=== PATIENT | male | born 1990 | race Caucasian/White ===

== ENCOUNTER 2017-10-22 06:05 | Day surgery (SDC) | payer OTHER ==
[~2017-10-22] VITALS: Ht 177.8 cm; Wt 99.8 kg
[~2017-10-22 06:05] MED LIST: NAPROXEN375 M1 PO; NEURONTIN 300300 MG PO; PAXIL30 MG PO; PROPRANOLOL HCL20 MG PO; PROTONIX40 MG PO; SEROQUEL50 MG PO
[2017-10-22] MEDS ORDERED: ALENDRONATE SOD70 MG PO (07:43)
[2017-10-22 07:50] VITALS: BP 106/63; Ht 177.8 cm; Wt 99.8 kg
== END 2017-10-22 14:10 | disposition home or self-care (01) ==
LOC: D.OPS 06:05 → D.PAN 08:45 → D.OPS 14:10
DX: M87.852 Other osteonecrosis, left femur (principal); Z01.812 Encounter for preprocedural laboratory examination

== ENCOUNTER → 2017-12-02 13:13 | Outpatient (CLI) | payer OTHER ==
[2017-10-22 07:50] VITALS: BMI 31.6
[~2017-12-02 13:13] MED LIST changes: +ALENDRONATE SOD70 MG PO
== END | disposition home or self-care (01) ==
LOC: D.LABREF 13:13
DX: M16.11 Unilateral primary osteoarthritis, right hip (principal); Z11.8 Encounter for screening for other infectious and parasitic diseases

== ENCOUNTER → 2017-12-04 13:05 | Outpatient (CLI) | payer OTHER ==
[2017-10-22 07:50] VITALS: BMI 31.6
== END | disposition home or self-care (01) ==
LOC: D.LABREF 13:05
DX: M16.11 Unilateral primary osteoarthritis, right hip (principal); Z11.8 Encounter for screening for other infectious and parasitic diseases

== ENCOUNTER 2017-12-14 07:25 | Inpatient (IN) | payer OTHER ==
[~2017-12-14] VITALS: Ht 175.3 cm; Wt 90.9 kg
--- NOTE | ~2017-12-14 | MORECARE ---
CASE MANAGEMENT DISCHARGE SUMMARY PATIENT: XUAN TROTTER UNIT: [id number] ADM DATE: 12/14/17 AGE: 27 : 88 SEX: M ROOM/BED: D.2209 AUTHOR: JOSEPHINE BLAIR PHYSICIAN: REFERRING PHYSICIAN: DENNIS GRAHAM MD DATE OF SERVICE: 12/22/17 Discharge Plan Patient Name: XUNA TROTTER Facility: [facility]:[place] : 1990 Planned Disposition: Home with Home Health Anticipated Discharge Date: Discharge Date: 12/16/2017 Expected LOS: 0 Initial Reviewer: [email or web address] Initial Review Date: 12/14/2017 Generated: 12/22/17 10:23 am Comments DCP- Discharge Planning Updated by [email or web address]: Nancy Tripathi on 12/16/17 10:[address] Patient Name: XUAN TROTTER Admission Status: ER Accout number: [id number] Admission Date: 12-14-2017 : 1990 Admission Diagnosis: Attending: DENNIS GRAHAM Current LOS: 2 Anticipated DC Date: Planned Disposition: Home with Home Health Primary Insurance: [employer] MANAGED MEDICAID Discharge Planning Comments: CM met with patient to assess discharge planning needs. Patient will be discharging home to his fathers house where he is currently living and stated he feels safe there. He has a walker, wheelchair, crutches, cane, bedside commode, and shower chair at home. He would like to use [facility] [phone] for his home health. I called and spoke with Mindi and faxed order and clinicals over to her. She did not think there would be a problem to accept the patient . Patient's home address is [address] [place] [address] patient cell # is [phone]. Patient stated that he has walked 50 feet and has practiced stairs and feels safe to go home. His father will be the one to drive him home. CM will continue to follow and assist with DC planning as needed Occupational Health Specialist: Nancy Tripathi DCPIA - Discharge Planning Initial Assessment Updated by [email or web address]: Nancy Tripathi on 12/16/17 11:39 am * Is the patient Alert and Oriented? Yes * How many steps to enter\exit or inside your home? * PCP [facility] * [facility]acy [facility] * Preadmission Environment Home with Family * ADLs Independent * Equipment Bedside Commode Cane Crutch Rolling Walker Shower Chair Walker Wheelchair * List name and contact numbers for known caregivers / representatives who currently or will assist patient after discharge: RACHEL TROTTER (FATHER) * Verbal permission to speak to the caregivers and representatives has been obtained from the patient. N/A * Community resources currently utilized None * Additional services required to return to the preadmission environment? Yes * Can the patient safely return to the preadmission environment? Yes * Has this patient been hospitalized within the prior 30 days at any hospital? No Last DP export: 12/18/17 2:45 p Patient Name: XUAN TROTTER Page 47370 at 0923 All edits/amendments must be made on the electronic document DICTATION DATE: 12/22/17921 LONG DISTANCE OPERATOR: HOLLY 12/22/17921 RPT#: [id number] DC DATE:12/16/17 STATUS: DIS IN [facility] [address] [place] [address] END OF REPORT
--- NOTE | ~2017-12-14 | MORECARE ---
CASE MANAGEMENT DISCHARGE SUMMARY PATIENT: XUAN TROTTER UNIT: [id number] ADM DATE: 12/14/17 AGE: 27 : [birth year] SEX: M ROOM/BED: D.2209 AUTHOR: JOSEPHINE BLAIR PHYSICIAN: REFERRING PHYSICIAN: DENNIS GRAHAM MD DATE OF SERVICE: 12/18/17 Discharge Plan Patient Name: XUAN TROTTER Facility: [facility]:[place] : 1990 Planned Disposition: Home with Home Health Anticipated Discharge Date: Discharge Date: 12/16/2017 Expected LOS: Initial Reviewer: [email or web address] Initial Review Date: 12/14/2017 Generated: 12/18/17 4:45 pm Comments DCP- Discharge Planning Updated by [email or web address]: Nancy Tripathi on 12/16/17 10:[address] Patient Name: XUAN TROTTER Admission Status: ER Accout number: [id number] Admission Date: 12-14-2017 : 1990 Admission Diagnosis: Attending: DENNIS GRAHAM Current LOS: 2 Anticipated DC Date: Planned Disposition: Home with Home Health Primary Insurance: [employer] MANAGED MEDICAID Discharge Planning Comments: CM met with patient to assess discharge planning needs. Patient will be discharging home to his fathers house where he is currently living and stated he feels safe there. He has a walker, wheelchair, crutches, cane, bedside commode, and shower chair at home. He would like to use [facility] [phone] for his home health. I called and spoke with Mindi and faxed order and clinicals over to her. She did not think there would be a problem to accept the patient . Patient's home address is [address] [place] [address] patient cell # is [phone]. Patient stated that he has walked 50 feet and has practiced stairs and feels safe to go home. His father will be the one to drive him home. CM will continue to follow and assist with DC planning as needed Captain'S Assistant: Nancy Tripathi DCPIA - Discharge Planning Initial Assessment Updated by [email or web address]: Nancy Tripathi on 12/16/17 11:39 am * Is the patient Alert and Oriented? Yes * How many steps to enter\exit or inside your home? * PCP [facility] * [facility] * Preadmission Environment Home with Family * ADLs Independent * Equipment Bedside Commode Cane Crutch Rolling Walker Shower Chair Walker Wheelchair * List name and contact numbers for known caregivers / representatives who currently or will assist patient after discharge: RACHEL TROTTER (FATHER) * Verbal permission to speak to the caregivers and representatives has been obtained from the patient. N/A * Community resources currently utilized None * Additional services required to return to the preadmission environment? Yes * Can the patient safely return to the preadmission environment? Yes * Has this patient been hospitalized within the prior 30 days at any hospital? No External Providers [facility] Next Contact Date: Service Request Date: Service Type: Resolution: Reviewer: Comments: Last DP export: 12/16/17 10:51 a Patient Name: XUAN TROTTER Page 64686 at 1545 All edits/amendments must be made on the electronic document DICTATION DATE: 12/18/17 1544 MMD UNIT TEACHER: HOLLY 12/18/17 1544 RPT#: [id number] DC DATE:12/16/17 STATUS: DIS IN [facility] [address] [place] [address] END OF REPORT
--- NOTE | ~2017-12-14 | MORECARE ---
CASE MANAGEMENT DISCHARGE SUMMARY PATIENT: XUAN TROTTER UNIT: [id number] ADM DATE: 12/14/17 AGE: 27 : [birth year] SEX: M ROOM/BED: D.2209 AUTHOR: JOSEPHINE BLAIR PHYSICIAN: REFERRING PHYSICIAN: DENNIS GRAHAM MD DATE OF SERVICE: 12/16/17 Discharge Plan Patient Name: XUAN TROTTER Facility: [facility]:[place] : 1990 Planned Disposition: Home with Home Health Anticipated Discharge Date: Discharge Date: Expected LOS: Initial Reviewer: [email or web address] Initial Review Date: 12/14/2017 Generated: 12/16/17 12:51 pm Comments DCP- Discharge Planning Updated by [email or web address]: Nancy Tripathi on 12/16/17 10:[address] Patient Name: XUAN TROTTER Admission Status: ER Accout number: [id number] Admission Date: 12-14-2017 : 1990 Admission Diagnosis: Attending: DENNIS GRAHAM Current LOS: 2 Anticipated DC Date: Planned Disposition: Home with Home Health Primary Insurance: [employer] MANAGED MEDICAID Discharge Planning Comments: CM met with patient to assess discharge planning needs. Patient will be discharging home to his fathers house where he is currently living and stated he feels safe there. He has a walker, wheelchair, crutches, cane, bedside commode, and shower chair at home. He would [facility] to [facility] [phone] for his home health. I called and spoke with Mindi and faxed order and clinicals over to her. She did not think there would be a problem to accept the patient . Patient's home address is [address] [place] [address] patient cell # is [phone]. Patient stated that he has walked 50 feet and has practiced stairs and feels safe to go home. His father will be the one to drive him home. CM will continue to follow and assist with DC planning as needed Head Loader: Nancy Tripathi DCPIA - Discharge Planning Initial Assessment Updated by [email or web address]: Nancy Tripathi on 12/16/17 11:39 am * Is the patient Alert and Oriented? Yes * How many steps to enter\exit or inside your home? * PCP [facility] * [facility] * Preadmission Environment Home with Family * ADLs Independent * Equipment Bedside Commode Cane Crutch Rolling Walker Shower Chair Walker Wheelchair * List name and contact numbers for known caregivers / representatives who currently or will assist patient after discharge: RACHEL TROTTER (FATHER) * Verbal permission to speak to the caregivers and representatives has been obtained from the patient. N/A * Community resources currently utilized None * Additional services required to return to the preadmission environment? Yes * Can the patient safely return to the preadmission environment? Yes * Has this patient been hospitalized within the prior 30 days at any hospital? No Last DP export: 12/16/17 10:43 a Patient Name: XUAN TROTTER Page 72863 at 1151 All edits/amendments must be made on the electronic document DICTATION DATE: 12/16/17 1151 REGISTRY NURSE: HOLLY 12/16/17 1151 RPT#: [id number] DC DATE: STATUS: ADM IN [facility] [address] [place] [address] END OF REPORT
--- NOTE | ~2017-12-14 | MORECARE ---
CASE MANAGEMENT DISCHARGE SUMMARY PATIENT: XUAN TROTTER UNIT: [id number] ADM DATE: 12/14/17 AGE: 27 : [birth year] SEX: M ROOM/BED: D.2209 AUTHOR: JOSEPHINE BLAIR PHYSICIAN: REFERRING PHYSICIAN: DENNIS GRAHAM MD DATE OF SERVICE: 12/16/17 Discharge Plan Patient Name: XUAN TROTTER [facility] : 1990 Planned Disposition: Home with Home Health Anticipated Discharge Date: Discharge Date: Expected LOS: Initial Reviewer: [email or web address] Initial Review Date: 12/14/2017 Generated: 12/16/17 12:43 pm DCPIA - Discharge Planning Initial Assessment Updated by [email or web address]: Nancy Tripathi on 12/16/17 11:39 am * Is the patient Alert and Oriented? Yes * How many steps to enter\exit or inside your home? * PCP [facility] * Pharmacy [facility] * Preadmission Environment Home with Family * ADLs Independent * Equipment Bedside Commode Cane Crutch Rolling Walker Shower Chair Walker Wheelchair * List name and contact numbers for known caregivers / representatives who currently or will assist patient after discharge: RACHEL TROTTER (FATHER) * Verbal permission to speak to the caregivers and representatives has been obtained from the patient. N/A * Community resources currently utilized None * Additional services required to return to the preadmission environment? Yes * Can the patient safely return to the preadmission environment? Yes * Has this patient been hospitalized within the prior 30 days at any hospital? No Patient Name: XUAN TROTTER Page 06147 at 1143 All edits/amendments must be made on the electronic document DICTATION DATE: 12/16/17 1142 LOAD TALLIER: HOLLY 12/16/17 1142 RPT#: [id number] DC DATE: STATUS: ADM IN [facility] [address] [place] [address] END OF REPORT
[2017-12-14 08:22] LABS: BASOPHILS 0 % (0-2); EOSINOPHILS 0 % (0-7); HEMATOCRIT 39.9 % (42.0-54.0); HEMOGLOBIN 13.3 g/dL (13.5-17.5); IMMATURE GRANULOCYTES 0.3 % (0-5); LYMPHOCYTES 11.8 % (15-50); MCH 26.3 pg (26.0-34.0); MCHC 33.3 g/dL (31.0-37.0); MEAN PLATELET VOLUME 8.7 fL (7.4-10.4); MONOCYTES 3.2 % (2-11); NEUTROPHILS 84.7 % (40-80); PLATELET COUNT 236 10x3/uL (130-400); RBC 5.05 10x6/uL (4.20-6.10); WBC 9.5 10x3/uL (4.8-10.8)
[2017-12-14 08:36] LABS: APTT 25.6 SECONDS (22.8-39.4); INR 1.01 (0.85-1.17); PROTIME 12.9 SECONDS (11.6-15.0)
[2017-12-14 08:41] LABS: ALBUMIN 3.8 g/dL (3.4-5.0); ALKALINE PHOSPHATASE 115 U/L (46-116); ALT (SGPT) 20 U/L (10-68); BILIRUBIN - TOTAL 0.31 mg/dL (0.2-1.3); CALC OSMOLALITY 266 mosm/kg (275-300); CALCIUM 8.9 mg/dL (8.5-10.1); CARBON DIOXIDE 22.9 mmol/L (21.0-32.0); CHLORIDE - SERUM 97 mmol/L (98-107); CREATININE - SERUM 0.6 mg/dL (0.6-1.3); GLUCOSE 97 mg/dL (74-106); POTASSIUM - SERUM 4.3 mmol/L (3.5-5.1); PROTEIN - SERUM 8.4 g/dL (6.4-8.2); SODIUM 135 mmol/L (136-145); UREA NITROGEN 4 mg/dL (7-18); eGFR NON AFRICAN AMERICAN > 90 mL/min (90-120)
[2017-12-14 09:50] VITALS: BP 148/80; Ht 175.3 cm; Wt 90.9 kg
[2017-12-14 13:24] VITALS: BP 167/89
[2017-12-14 14:45] LABS: BASOPHILS 0.1 % (0-2); EOSINOPHILS 0 % (0-7); HEMATOCRIT 37.2 % (42.0-54.0); HEMOGLOBIN 12.2 g/dL (13.5-17.5); IMMATURE GRANULOCYTES 0.3 % (0-5); LYMPHOCYTES 6.7 % (15-50); MCHC 32.8 g/dL (31.0-37.0); MCV 79.3 fL (80.0-100.0); MEAN PLATELET VOLUME 8.7 fL (7.4-10.4); MONOCYTES 2.5 % (2-11); NEUTROPHILS 90.4 % (40-80); PLATELET COUNT 233 10x3/uL (130-400); RBC 4.69 10x6/uL (4.20-6.10); WBC 10.2 10x3/uL (4.8-10.8)
[2017-12-14 14:55] LABS: CALC OSMOLALITY 272 mosm/kg (275-300); CALCIUM 8.3 mg/dL (8.5-10.1); CARBON DIOXIDE 24.5 mmol/L (21.0-32.0); CHLORIDE - SERUM 101 mmol/L (98-107); CREATININE - SERUM 0.6 mg/dL (0.6-1.3); GLUCOSE 102 mg/dL (74-106); POTASSIUM - SERUM 4.5 mmol/L (3.5-5.1); SODIUM 138 mmol/L (136-145); UREA NITROGEN 4 mg/dL (7-18); eGFR NON AFRICAN AMERICAN > 90 mL/min (90-120)
[2017-12-14 16:07] VITALS: BP 163/83
[2017-12-14 20:00] VITALS: BP 158/75
[2017-12-15 01:00] VITALS: BP 134/82
[2017-12-15 06:26] LABS: BASOPHILS 0.1 % (0-2); EOSINOPHILS 0 % (0-7); HEMATOCRIT 34.5 % (42.0-54.0); HEMOGLOBIN 10.8 g/dL (13.5-17.5); IMMATURE GRANULOCYTES 0.2 % (0-5); LYMPHOCYTES 10.2 % (15-50); MCHC 31.3 g/dL (31.0-37.0); MCV 79.9 fL (80.0-100.0); MEAN PLATELET VOLUME 8.8 fL (7.4-10.4); MONOCYTES 11.6 % (2-11); NEUTROPHILS 77.9 % (40-80); PLATELET COUNT 214 10x3/uL (130-400); RBC 4.32 10x6/uL (4.20-6.10); RDW 16.1 % (11.5-14.5); WBC 9.9 10x3/uL (4.8-10.8)
[2017-12-15 06:50] LABS: ALBUMIN 3.2 g/dL (3.4-5.0); ALKALINE PHOSPHATASE 92 U/L (46-116); ALT (SGPT) 18 U/L (10-68); BILIRUBIN - TOTAL 0.73 mg/dL (0.2-1.3); CALC OSMOLALITY 264 mosm/kg (275-300); CALCIUM 8.7 mg/dL (8.5-10.1); CARBON DIOXIDE 27.2 mmol/L (21.0-32.0); CHLORIDE - SERUM 98 mmol/L (98-107); CREATININE - SERUM 0.7 mg/dL (0.6-1.3); GLUCOSE 101 mg/dL (74-106); PROTEIN - SERUM 7.2 g/dL (6.4-8.2); SODIUM 134 mmol/L (136-145); UREA NITROGEN 5 mg/dL (7-18); eGFR NON AFRICAN AMERICAN > 90 mL/min (90-120)
[2017-12-15 06:51] LABS: POTASSIUM - SERUM 3.7 mmol/L (3.5-5.1)
[2017-12-15 08:12] VITALS: BP 139/70
[2017-12-15 13:04] VITALS: BP 144/78
[2017-12-15 16:33] VITALS: BP 153/82
[2017-12-15 20:00] VITALS: BP 140/84
[2017-12-16] VITALS: BP 151/69
[2017-12-16 04:00] VITALS: BP 143/82
[2017-12-16 08:30] VITALS: BP 144/69
[2018-01-05] MEDS ORDERED: BUPRENORPHIN-N1 EACH SL (13:10)
== END 2017-12-16 13:03 | disposition home health service (06) | DRG 470 ==
LOC: D.ER 07:25 → D.MS 08:07 → D.SDCHOLD 12-15 09:39 → D.MS 12-15 09:41
PROVIDERS: Family Medicine; Orthopaedic Surgery
PROC: 0SRB0JA Replacement of Left Hip Joint with Synthetic Substitute, Uncemented, Open Approach (ICD-10-PCS; principal; 2017-12-14 09:13)
DX: M84.652A Pathological fracture in other disease, left femur, initial encounter for fracture (principal); M87.852 Other osteonecrosis, left femur; K21.9 Gastro-esophageal reflux disease without esophagitis; F17.200 Nicotine dependence, unspecified, uncomplicated; H91.92 Unspecified hearing loss, left ear

== ENCOUNTER 2018-01-07 05:00 | Inpatient (IN) | payer OTHER ==
[2018-01-05 14:22] LABS: CALC OSMOLALITY 278 mosm/kg (275-300); CALCIUM 8.7 mg/dL (8.5-10.1); CARBON DIOXIDE 29.2 mmol/L (21.0-32.0); CHLORIDE - SERUM 101 mmol/L (98-107); CREATININE - SERUM 0.8 mg/dL (0.6-1.3); GLUCOSE 115 mg/dL (74-106); POTASSIUM - SERUM 4.1 mmol/L (3.5-5.1); SODIUM 140 mmol/L (136-145); UREA NITROGEN 10 mg/dL (7-18); eGFR NON AFRICAN AMERICAN > 90 mL/min (90-120)
[2018-01-05 14:26] LABS: APTT 27.5 SECONDS (22.8-39.4); INR 1.01 (0.85-1.17); PROTIME 12.8 SECONDS (11.6-15.0)
[2018-01-05 15:17] LABS: BASOPHILS 0.4 % (0-2); HEMATOCRIT 32.3 % (42.0-54.0); HEMOGLOBIN 9.9 g/dL (13.5-17.5); IMMATURE GRANULOCYTES 0.1 % (0-5); LYMPHOCYTES 35.1 % (15-50); MCH 24.8 pg (26.0-34.0); MCHC 30.7 g/dL (31.0-37.0); MEAN PLATELET VOLUME 8.9 fL (7.4-10.4); MONOCYTES 9.6 % (2-11); NEUTROPHILS 52.8 % (40-80); RBC 3.99 10x6/uL (4.20-6.10); RDW 15.1 % (11.5-14.5); WBC 6.8 10x3/uL (4.8-10.8)
[2018-01-05 15:22] LABS: PLATELET COUNT 400 10x3/uL (130-400)
[2018-01-05 16:08] LABS: APPEARANCE HAZY (CLEAR); COLOR DK YELLOW (YELLOW); GLUCOSE NEGATIVE (NEGATIVE); KETONE NEGATIVE (NEGATIVE); NITRITE NEGATIVE (NEGATIVE); PROTEIN TRACE mg/dL (NEGATIVE)
[2018-01-05 16:09] LABS: BILIRUBIN 2+ (NEGATIVE)
[2018-01-05 16:11] LABS: AMORPHOUS SEDIMENT <1+ /lpf (NONE SEEN); BACTERIA MANY /hpf (NONE SEEN); RED CELLS - URINE OCC /hpf (0-5); WHITE CELLS - URINE RARE /hpf (0-5)
[~2018-01-07] VITALS: Ht 177.8 cm; Wt 90.9 kg
--- NOTE | ~2018-01-07 | MORECARE ---
CASE MANAGEMENT DISCHARGE SUMMARY PATIENT: XUAN TROTTER UNIT: [id number] ADM DATE: 01/07/18 AGE: 27 : [birth year] SEX: M ROOM/BED: D.2230 AUTHOR: JOSEPHINE BLAIR PHYSICIAN: REFERRING PHYSICIAN: DENNIS GRAHAM MD DATE OF SERVICE: 01/09/18 Discharge Plan Patient Name: XUAN TROTTER [facility] [facility] 1990 Planned Disposition: Home with Home Health Anticipated Discharge Date: 01/09/18 Discharge Date: Expected LOS: 2 Initial Reviewer: [email or web address] Initial Review Date: 01/09/2018 Generated: 01/09/18 1:31 pm DCPIA - Discharge Planning Initial Assessment Updated by [email or web address]: Svetlana Bardales on 01/09/18 12:27 pm * Is the patient Alert and Oriented? Yes * How many steps to enter\exit or inside your home? 2/0 * PCP Dr[facility] Caleb Toro in [facility] * Pharmacy [facility] in [place] * Preadmission Environment Home with Family * ADLs Partial Dependent * Partial ADLs (Assistance needed) Ambulation * Equipment Cane Other Walker Wheelchair * Other Equipment Commode Property Custodian (3 way) * List name and contact numbers for known caregivers / representatives who currently or will assist patient after discharge: [place] - [facility] - [phone] * Verbal permission to speak to the caregivers and representatives has been obtained from the patient. Yes * Community resources currently utilized Home Health * Please name any agencies selected above. [facility] * Additional services required to return to the preadmission environment? No * Can the patient safely return to the preadmission environment? Yes * Has this patient been hospitalized within the prior 30 days at any hospital? Yes Patient Name: XUAN TROTTER Page 03792 at 1231 All edits/amendments must be made on the electronic document DICTATION DATE: 01/09/18 1231 COMBINE MECHANIC: HOLLY 01/09/18 1231 RPT#: [id number] DC DATE: STATUS: ADM IN [facility] [address] [place] [address] END OF REPORT
--- NOTE | ~2018-01-07 | MORECARE ---
CASE MANAGEMENT DISCHARGE SUMMARY PATIENT: XUAN TROTTER UNIT: [id number] ADM DATE: 01/07/18 AGE: 27 : [birth year] SEX: M ROOM/BED: D.2230 AUTHOR: JOSEPHINE BLAIR PHYSICIAN: REFERRING PHYSICIAN: DENNIS GRAHAM MD DATE OF SERVICE: 01/09/18 Discharge Plan Patient Name: XUAN TROTTER Facility: [facility]:[place] : 1990 Planned Disposition: Home with Home Health Anticipated Discharge Date: 01/09/18 Discharge Date: Expected LOS: 2 Initial Reviewer: [email or web address] Initial Review Date: 01/09/2018 Generated: 01/09/18 1:40 pm Comments DCP- Discharge Planning Updated by [email or web address]: Svetlana Bardales on 01/09/18 11:[address] Patient Name: XUAN TROTTER Admission Status: Elective Accout number: [id number] Admission Date: 01-07-2018 : 1990 Admission Diagnosis: Attending: DENNIS GRAHAM Current LOS: 2 Anticipated DC Date: 01-09-2018 Planned Disposition: Home with Home Health Primary Insurance: [employer] MANAGED MEDICAID Discharge Planning Comments: CM met with patient and his father to discuss discharge planning/needs. States he uses a walker for ambulation, otherwise is independent with all ADL's. States he had his left hip operated on 4 weeks ago and has done well. States [facility] has been doing his PT and nursing. He denies need for additional DME or rehab services. His plan is to return home with resumption of [facility] with [facility]. Spoke with Cassy at [facility] #[phone] and notified of discharge today. Clinical faxed to [phone]. Home today with resumption of HHS. CM will continue to follow and assist with discharge planning/needs. Airplane Electrician: Svetlana Bardales DCPIA - Discharge Planning Initial Assessment Updated by [email or web address]: Svetlana Bardales on 01/09/18 12:27 pm * Is the patient Alert and Oriented? Yes * How many steps to enter\exit or inside your home? 2/0 * PCP Dr[facility] Caleb Toro in [facility] * Pharmacy [facility] in [place] * Preadmission Environment Home with Family * ADLs Partial Dependent * Partial ADLs (Assistance needed) Ambulation * Equipment Cane Other Walker Wheelchair * Other Equipment Commode Hide Inspector And Sorter (3 way) * List name and contact numbers for known caregivers / representatives who currently or will assist patient after discharge: [place] casanova - [phone] * Verbal permission to speak to the caregivers and representatives has been obtained from the patient. Yes * Community resources currently utilized Home Health * Please name any agencies selected above. [facility] * Additional services required to return to the preadmission environment? No * Can the patient safely return to the preadmission environment? Yes * Has this patient been hospitalized within the prior 30 days at any hospital? Yes Last DP export: 01/09/18 11:31 Patient Name: XUAN TROTTER Page 22520 at 1240 All edits/amendments must be made on the electronic document DICTATION DATE: 01/09/18 1240 CLINIC CLERK: HOLLY 01/09/18 1240 RPT#: [id number] DC DATE: STATUS: ADM IN [facility] [address] [place] [address] END OF REPORT
--- NOTE | ~2018-01-07 | MORECARE ---
CASE MANAGEMENT DISCHARGE SUMMARY PATIENT: XUAN TROTTER UNIT: [id number] ADM DATE: 01/07/18 AGE: 27 : [birth year] SEX: M ROOM/BED: D.2230 AUTHOR: JOSEPHINE BLAIR PHYSICIAN: REFERRING PHYSICIAN: DENNIS GRHAAM MD DATE OF SERVICE: 01/09/18 Discharge Plan Patient Name: XUAN TROTTER Facility: [facility]:[place] : 1990 Planned Disposition: Home with Home Health Anticipated Discharge Date: 01/09/18 Discharge Date: Expected LOS: 2 Initial Reviewer: [email or web address] Initial Review Date: 01/09/2018 Generated: 01/09/18 1:51 pm Comments DCP- Discharge Planning Updated by [email or web address]: Svetlana Bardales on 01/09/18 11:[address] Patient Name: XUAN TROTTER Admission Status: Elective Accout number: [id number] Admission Date: 01-07-2018 : 1990 Admission Diagnosis: Attending: DENNIS GRAHAM Current LOS: 2 Anticipated DC Date: 01-09-2018 Planned Disposition: Home with Home Health Primary Insurance: [employer] MANAGED MEDICAID Discharge Planning Comments: CM met with patient and his father to discuss discharge planning/needs. States he uses a walker for ambulation, otherwise is independent with all ADL's. States he had his left hip operated on 4 weeks ago and has done well. States [facility] care has been doing his PT and nursing. He denies need for additional DME or rehab services. His plan is to return home with resumption of [facility] with [facility]. Spoke with Cassy at [facility] #[phone] and notified of discharge today. Clinical faxed to [phone]. Home today with resumption of HHS. CM will continue to follow and assist with discharge planning/needs. Weed Controller: Svetlana Bardales DCPIA - Discharge Planning Initial Assessment Updated by [email or web address]: Svetlana Bardales on 01/09/18 12:27 pm * Is the patient Alert and Oriented? Yes * How many steps to enter\exit or inside your home? 2/0 * PCP Dr[facility] Caleb Toro in [facility] * Pharmacy [facility] in [place] * Preadmission Environment Home with Family * ADLs Partial Dependent * Partial ADLs (Assistance needed) Ambulation * Equipment Cane Other Walker Wheelchair * Other Equipment Commode Mobile Lab Technician (3 way) * List name and contact numbers for known caregivers / representatives who currently or will assist patient after discharge: [place] casanova - [phone] * Verbal permission to speak to the caregivers and representatives has been obtained from the patient. Yes * Community resources currently utilized Home Health * Please name any agencies selected above. [facility] * Additional services required to return to the preadmission environment? No * Can the patient safely return to the preadmission environment? Yes * Has this patient been hospitalized within the prior 30 days at any hospital? Yes External Providers External Provider: [facility] Next Contact Date: Service Request Date: Service Type: Resolution: Reviewer: Comments: Last DP export: 01/09/18 11:40 Patient Name: XUAN TROTTER Page 80857 at 1251 All edits/amendments must be made on the electronic document DICTATION DATE: 01/09/18 1250 JUICE TESTER: HOLLY 01/09/18 1250 RPT#: [id number] DC DATE: STATUS: ADM IN [facility] [address] [place] [address] END OF REPORT
--- NOTE | ~2018-01-07 | MORECARE ---
CASE MANAGEMENT DISCHARGE SUMMARY PATIENT: XUAN TROTTER UNIT: [id number] ADM DATE: 01/07/18 AGE: 27 : [birth year] SEX: M ROOM/BED: D.2230 AUTHOR: JOSEPHINE BLAIR PHYSICIAN: REFERRING PHYSICIAN: DENNIS GRAHAM MD DATE OF SERVICE: 01/09/18 Discharge Plan Patient Name: XUAN TROTTER Facility: [facility]:[place] : 1990 Planned Disposition: Home with Home Health Anticipated Discharge Date: 01/09/18 Discharge Date: 01/09/2018 Expected LOS: 2 Initial Reviewer: [email or web address] Initial Review Date: 01/09/2018 Generated: 01/09/18 4:59 pm Comments DCP- Discharge Planning Updated by [email or web address]: Svetlana Bardales on 01/09/18 11:[address] Patient Name: XUAN TROTTER Admission Status: Elective Accout number: [id number] Admission Date: 01-07-2018 : 1990 Admission Diagnosis: Attending: DENNIS GRAHAM Current LOS: 2 Anticipated DC Date: 01-09-2018 Planned Disposition: Home with Home Health Primary Insurance: [employer] MEDICAID Discharge Planning Comments: CM met with patient and his father to discuss discharge planning/needs. States he uses a walker for ambulation, otherwise is independent with all ADL's. States he had his left hip operated on 4 weeks ago and has done well. States [facility] care has been doing his PT and nursing. He denies need for additional DME or rehab services. His plan is to return home with resumption of [facility] with [facility]. Spoke with Cassy at [facility] #[phone] and notified of discharge today. Clinical faxed to [phone]. Home today with resumption of HHS. CM will continue to follow and assist with discharge planning/needs. Medical Customer Service Representative: Svetlana Bardales DCPIA - Discharge Planning Initial Assessment Updated by [email or web address]: Svetlana Bardales on 01/09/18 12:27 pm * Is the patient Alert and Oriented? Yes * How many steps to enter\exit or inside your home? 2/0 * PCP Dr[facility] Caleb Toro in [facility] * Pharmacy [facility] in [place] * Preadmission Environment Home with Family * ADLs Partial Dependent * Partial ADLs (Assistance needed) Ambulation * Equipment Cane Other Walker Wheelchair * Other Equipment Commode Journalism Teacher (3 way) * List name and contact numbers for known caregivers / representatives who currently or will assist patient after discharge: [place] - edilberto - [phone] * Verbal permission to speak to the caregivers and representatives has been obtained from the patient. Yes * Community resources currently utilized Home Health * Please name any agencies selected above. [facility] * Additional services required to return to the preadmission environment? No * Can the patient safely return to the preadmission environment? Yes * Has this patient been hospitalized within the prior 30 days at any hospital? Yes Last DP export: 01/09/18 11:51 Patient Name: XUAN TROTTER Page 91234 at 1559 All edits/amendments must be made on the electronic document DICTATION DATE: 01/09/181558 TONGUE CARRIER: HOLLY 01/09/18 1559 RPT#: [id number] DC DATE:01/09/18 STATUS: DIS IN [facility] [address] [place] [address] END OF REPORT
[~2018-01-07 05:00] MED LIST changes: +BUPRENORPHIN-N1 EACH SL
[2018-01-07 06:32] VITALS: BP 109/54; BMI 28.7
[2018-01-07 11:45] LABS: APPEARANCE CLEAR (CLEAR); BILIRUBIN NEGATIVE (NEGATIVE); COLOR YELLOW (YELLOW); GLUCOSE NEGATIVE (NEGATIVE); KETONE NEGATIVE (NEGATIVE); NITRITE NEGATIVE (NEGATIVE); PROTEIN NEGATIVE (NEGATIVE); SPECIFIC GRAVITY 1.025 (1.005-1.020); UROBILINOGEN NORMAL (NORMAL)
[2018-01-07 12:07] LABS: BACTERIA FEW /hpf (NONE SEEN); EPITHELIAL CELLS 0-5 /hpf (0-5); MUCUS <1+ /lpf (NONE SEEN); WHITE CELLS - URINE RARE /hpf (0-5)
[2018-01-07 22:38] VITALS: BP 119/47
[2018-01-08 01:05] VITALS: BP 125/51
[2018-01-08 06:35] VITALS: BP 100/46
[2018-01-08 08:15] VITALS: BP 126/67
[2018-01-08 11:14] VITALS: BP 126/78
[2018-01-08 11:36] LABS: BASOPHILS 0.2 % (0-2); HEMATOCRIT 29.1 % (42.0-54.0); HEMOGLOBIN 8.9 g/dL (13.5-17.5); IMMATURE GRANULOCYTES 0.5 % (0-5); LYMPHOCYTES 9.6 % (15-50); MCH 24.3 pg (26.0-34.0); MCHC 30.6 g/dL (31.0-37.0); MCV 79.3 fL (80.0-100.0); MEAN PLATELET VOLUME 8.6 fL (7.4-10.4); MONOCYTES 1.4 % (2-11); NEUTROPHILS 87.3 % (40-80); RBC 3.67 10x6/uL (4.20-6.10); RDW 15.2 % (11.5-14.5); WBC 9.1 10x3/uL (4.8-10.8)
[2018-01-08 11:46] LABS: PLATELET COUNT 284 10x3/uL (130-400)
[2018-01-08 11:47] LABS: CALC OSMOLALITY 272 mosm/kg (275-300); CARBON DIOXIDE 25.8 mmol/L (21.0-32.0); CHLORIDE - SERUM 106 mmol/L (98-107); CREATININE - SERUM 0.8 mg/dL (0.6-1.3); GLUCOSE 103 mg/dL (74-106); POTASSIUM - SERUM 4.4 mmol/L (3.5-5.1); SODIUM 137 mmol/L (136-145); UREA NITROGEN 11 mg/dL (7-18); eGFR NON AFRICAN AMERICAN > 90 mL/min (90-120)
[2018-01-08 21:55] VITALS: BP 118/55
[2018-01-09 05:48] VITALS: BP 132/52
[2018-01-09 08:17] VITALS: BP 139/56
[2018-01-09 12:17] VITALS: BP 127/53
[2018-01-09] MEDS ORDERED: ASPIRIN325 MG PO (12:27)
[2018-01-09 12:57] VITALS: Ht 177.8 cm; Wt 90.9 kg
== END 2018-01-09 15:18 | disposition home health service (06) | DRG 470 ==
LOC: D.MS 05:00 → D.SDCHOLD 05:00 → D.MS 16:31
PROVIDERS: Orthopaedic Surgery
PROC: 0SR90JZ Replacement of Right Hip Joint with Synthetic Substitute, Open Approach (ICD-10-PCS; principal; 2018-01-07)
DX: M16.11 Unilateral primary osteoarthritis, right hip (principal); N39.0 Urinary tract infection, site not specified; M87.9 Osteonecrosis, unspecified